=== PATIENT | female | born 1990 | race Caucasian/White ===

== ENCOUNTER → 2019-07-17 10:23 | Outpatient (BNVA) | payer BC, SELFPAY | PROVIDERS: Family Provider Family Medicine; PCP Family Medicine; Visit Provider Family Medicine | DX: J02.9 Acute pharyngitis, unspecified (principal); R50.9 Fever, unspecified; J06.9 Acute upper respiratory infection, unspecified | CPT/HCPCS: 87081; 87804; 87880 ==

== ENCOUNTER 2020-01-15 08:39 | Outpatient (CLI) | payer BC, SELFPAY ==
--- NOTE | 2020-01-15 08:45 | XRR_ITS ---
PROCEDURE INFORMATION: Exam: XR Left Foot Complete Exam date and time: 01/15/2020 9:01 AM Age: 29 years old Clinical indication: Pain; Foot; Left; Additional info: Left foot painx 1 week, no current trauma, left foot broken twice in the past TECHNIQUE: Imaging protocol: XR Left foot. Views: 3 or more views. COMPARISON: No relevant prior studies available. FINDINGS: Bones/joints: Hindfoot-midfoot and midfoot-forefoot articulations are normal. Phalanges without an acute process. Subtalar joint and the tibiotalar joint appears normal. Soft tissues: Normal. Other findings: Metatarsals without fracture. XR/XR foot LT min 3V* [id number] IMPRESSION: No fracture or foreign body.
== END 2020-01-15 08:40 | disposition home or self-care (01) ==
LOC: RAD 08:42
PROVIDERS: PCP Family Medicine; Visit Provider Nurse Practitioner Family
DX: M79.672 Pain in left foot (principal)
CPT/HCPCS: 73630

== ENCOUNTER 2020-03-19 13:45 | Emergency (ER) | payer BC, SELFPAY ==
[2020-03-19 13:47] VITALS: BP 149/49; PULSE 103; RESP 18; TEMP 36.8; O2SAT 99; BMI 48.6
--- NOTE | 2020-03-19 14:15 | W.ED.SOB ---
HPI - SOB/Dyspnea General: Chief Complaint: Shortness of Breath/Dyspnea Stated Complaint: +COVID LAST WEEK, CHEST PAIN/SOB TODAY Time Seen by Provider: 03/19/20 13:47 History of Present Illness: HPI Narrative: 29-year-old female patient presents to the emergency department with shortness of breath and chest tightness. She was diagnosed with COVID 19 7 days ago. She reports was feeling better yesterday, but noted increased chest tightness and shortness of breath, consistent with asthma exacerbation. She denies wheezing, cough or difficulty catching her breath. She states is able to monitor her home oxygen, oxygen level at home has been 99 to 100%. MD elicited complaint: shortness of breath and cough Pertinent past history: asthma Timing: intermittent Severity: moderate Exacerbating factors: coughing and inspiration Relieving factors: rest Associated symptoms: Reports no associated symptoms; Deny abdominal pain, chest pain, diaphoresis, fever(s), lightheadedness, nausea, palpitations or vomiting Treatment prior to arrival: other (Albuterol treatments, she reports is out of albuterol nebulizer and Ventolin HFA, she is requesting refill, she is also requesting steroids for asthma.) Review of Systems General: Reports: 10 or more systems reviewed and unremarkable except in HPI and below Const: Denies: fever(s), chills or diaphoresis Eyes: Denies: blurry vision or eye redness ENMT: Denies: throat pain, dental pain or disequilibrium Card: Denies: chest pain, palpitations, irregular heart rhythm or lightheadedness Resp: Reports: dyspnea and non-productive cough; Denies: productive cough or wheezing GI: Denies: abdominal pain, nausea or vomiting : Denies: difficulty voiding or dysuria Musc: Denies: back pain Skin/Breast: Denies: rash or pruritus Neuro: Denies: headache(s), weakness in extremities or behavioral changes Psych: Denies: anxiety or depression Mckinley/Lymph: Denies: easy bruising PFS ED PFSH: Medical History (Updated 03/19/20 @ 14:15 by BILL Carroll) Chronic migraine GRISEL (generalized anxiety disorder) Insomnia RUBEN (obstructive sleep apnea) Surgical History H/O section Family History Other CAD (coronary artery disease) Hyperlipidemia Social History Smoking and tobacco status: former smoker Alcohol intake: current Alcohol intake frequency: holidays/special occasions only Physical Exam Const: COMMON NORMALS: no acute distress, patient oriented x3, healthy appearing and alert GENERAL APPEARANCE: cooperative, comfortable and well hydrated HENMT: COMMON NORMALS: normocephalic, Normal external nose present and moist oral mucous membranes HEAD & SCALP: normocephalic NOSE: Normal external nose present Eye: COMMON NORMALS: Equal, round and reactive pupils present and EOMs intact bilaterally GENERAL EYE: appearance normal, both eyes and all related structures PUPIL: Yes Equal, round and reactive pupils present Neck/C-Spine: COMMON NORMALS: full ROM and no lymphadenopathy GENERAL: Yes normal visual inspection and Yes trachea midline CERVICAL SPINE: Yes cervical ROM normal Lymph: LYMPHATIC: no lymphadenopathy noted Chest: COMMONS NORMALS: normal inspection of the chest and normal palpation of entire chest wall Resp: COMMON NORMALS: normal respiratory effort and clear to auscultation bilaterally EFFORT & INSPECTION: Yes able to speak in complete sentences AUSCULTATION: clear to auscultation bilaterally, no rhonchi, no wheezes and lung sounds not diminished Cardio: COMMON NORMALS: regular rhythm, S1 normal heart sound present and S2 normal heart sound present RHYTHM: regular rhythm HEART SOUNDS: S1 normal heart sound present and S2 normal heart sound present GI: COMMON NORMALS: Soft to palpation and non-tender INSPECTION: Yes normal to inspection PALPATION: Yes Soft to palpation : COMMON NORMALS: Yes no CVA tenderness BLADDER/KIDNEY EXAM: Yes no CVA tenderness Back/Pelvis: COMMON NORMALS: no CVA tenderness and thoracic and lumbar spine normal to inspection Extremity: COMMON NORMALS: normal to inspection and capillary refill normal Neuro: COMMON NORMALS: patient oriented x3 and no focal motor deficits SENSORIUM/ORIENTATION: Yes alert Psych: COMMON NORMALS: mental status grossly normal, Normal thought process present and cooperative ACTIVITY/MOTOR BEHAVIOR: Yes appropriate eye contact THOUGHT PROCESS: Normal thought process present Skin: COMMON NORMALS: no rashes or lesions noted and turgor normal GENERAL SKIN EXAM: no rashes or lesions noted and turgor normal Course ED course: 29-year-old female patient presents to the emergency department with onset of shortness of breath and increased cough. She reports history of asthma. She denies wheezing, states shortness of breath and chest tightness is resolved with use of albuterol. She reports is currently out. She is requesting steroids for asthma symptoms. Prednisone 20 mg p.o. twice daily was prescribed. She is aware this is not a COVID treatment but is prescribed for asthma. Refill of albuterol both inhaler and liquid nebulizer given. She was advised to continue with oxygen monitoring at home, advised to return to the emergency department if she develops hypoxia, O2 saturation less than 90 to 91%, she verbalized understanding. Questions were answered. She is requesting to go home with prescriptions. Vital Signs: Vital signs: Vital Signs Temperature 98.3 F 03/19/20 13:47 Pulse Rate 103 H 03/19/20 13:47 Respiratory Rate 18 03/19/20 13:47 Blood Pressure 149/49 03/19/20 13:47 Pulse Oximetry 99 03/19/20 13:47 Discharge Plan Discharge Patient Disposition: Home Clinical Impression: COVID-19 virus detected Asthma Qualifiers: Asthma severity: moderate Asthma persistence: unspecified Asthma complication type: unspecified Qualified Code(s): J45.909 - Unspecified asthma, uncomplicated Condition: Stable Prescriptions: New prednisone 20 mg tablet 20 mg PO BID 5 Days Qty: 10 RF: 0 Ventolin HFA 90 mcg/actuation HFA aerosol inhaler 2 puff INHALATION Q4H PRN (Reason: shortness of breath or wheezing) Qty: 18 RF: 0 albuterol sulfate 1.25 mg/3 mL solution for nebulization 1.25 mg INHALATION QID PRN (Reason: asthma) Qty: 75 RF: 0 No Action venlafaxine [Effexor XR] 150 mg capsule,extended release 24hr 150 mg PO QDAY Qty: 90 RF: 1 tizanidine 4 mg capsule 4 mg PO TID PRN (Reason: muscle spasticity) Qty: 30 RF: 1 alprazolam [Xanax] 0.5 mg tablet 0.5 mg PO .q4-6hours PRN (Reason: anxiety) Qty: 30 RF: 1 sumatriptan succinate [Imitrex] 100 mg tablet 100 mg PO Q2H PRN (Reason: migraine headache) Qty: 9 RF: 3 Discharge Orders: Discharge Order (Routine); Ordered 03/19/20 Ordered By: Anastasiia Diop Referrals: Dasia Pepe DO [Primary Care Provider] - Patient Instructions: Asthma (ED), Viral Syndrome (ED) Activity Restrictions/Additional Instructions: Prescription for Ventolin HFA has been given to you, use as needed for shortness of breath/asthma symptoms Prescription for albuterol nebulizer has been given to you as requested for refill. Use as needed for asthma symptoms, use sparingly as COVID can be spread by aerosol Remain in quarantine as directed Return to the emergency department if you develop increased shortness of breath, difficulty catching her breath, coughing up blood, or if oxygen saturation drops below 90 to 91%. Take prednisone with food. Coding Level of Care Code ED Compensation Vice President for Misty Sidhu
== END 2020-03-19 14:17 | disposition home or self-care (01) ==
PROVIDERS: Emergency Provider Nurse Practitioner Family; PCP Family Medicine
DX: U07.1 COVID-19 (principal); J45.909 Unspecified asthma, uncomplicated; Z87.891 Personal history of nicotine dependence
CPT/HCPCS: 12345; 99281; 99282

== ENCOUNTER → 2020-04-28 13:43 | Outpatient (BNVA) | payer BC, SELFPAY | PROVIDERS: PCP Family Medicine; Visit Provider Family Medicine | DX: I10 Essential (primary) hypertension (principal); F41.1 Generalized anxiety disorder; Z68.43 Body mass index [BMI] 50.0-59.9, adult; F17.211 Nicotine dependence, cigarettes, in remission; Z71.89 Other specified counseling | CPT/HCPCS: 80048 ==

== ENCOUNTER → 2020-06-15 11:53 | Outpatient (BNVA) | payer OTHER, SELFPAY | PROVIDERS: Visit Provider Family Medicine | DX: I10 Essential (primary) hypertension (principal) | CPT/HCPCS: 80053; 80061; 82043; 85025 ==

== ENCOUNTER → 2020-11-19 10:02 | Outpatient (BNVA) | payer OTHER, SELFPAY | PROVIDERS: PCP Family Medicine; Visit Provider Orthopaedic Surgery | DX: M54.6 Pain in thoracic spine (principal) | CPT/HCPCS: 72070 ==

== ENCOUNTER → 2021-01-07 10:39 | Outpatient (BNVA) | payer OTHER, SELFPAY | PROVIDERS: PCP Family Medicine; Visit Provider Family Medicine | DX: I10 Essential (primary) hypertension (principal) | CPT/HCPCS: 80053 ==

== ENCOUNTER → 2021-06-19 12:12 | Outpatient (BNVA) | payer OTHER, SELFPAY | PROVIDERS: PCP Family Medicine; Visit Provider Family Medicine | DX: J20.9 Acute bronchitis, unspecified (principal); R05.9 Cough, unspecified; Z20.822 Contact with and (suspected) exposure to COVID-19 | CPT/HCPCS: 87400; 87635 ==